=== PATIENT | male | born 1960 | race Caucasian/White ===

== ENCOUNTER → 2017-08-31 17:06 | Outpatient (CLI) | payer OTHER ==
[~2017-08-31 17:06] MED LIST: ASPIR-TRIN325 MG; METOPROLOL ER-1 EAC1; MICARDIS HCT 41 EACH
== END | disposition home or self-care (01) ==
LOC: RAD 17:06
DX: M54.5 Low back pain (principal)

== ENCOUNTER → 2019-08-09 | Outpatient (CLI) | payer OTHER | END | disposition home or self-care (01) | LOC: MRI 09:12 | DX: M54.5 Low back pain (principal) | CPT/HCPCS: 72148 ==

== ENCOUNTER 2020-11-30 11:04 | Outpatient (CLI) | payer OTHER ==
[~2020-11-30 11:04] MED LIST changes: +CYCLOBENZAPRINE10 MG PO; +DICLOFENAC POTA50 MG PO; +LYRICA50 MG PO; +TEGRETOL200 MG PO
== END 2020-11-30 15:00 | disposition home or self-care (01) ==
LOC: LAB 11:04
PROVIDERS: ATTEND Physical Medicine & Rehabilitation
DX: E56.8 Deficiency of other vitamins (principal)

== ENCOUNTER 2020-12-07 09:48 | Outpatient (CLI) | payer OTHER | END 2020-12-07 09:52 | disposition home or self-care (01) | LOC: LAB 09:48 | PROVIDERS: ATTEND Physical Medicine & Rehabilitation | DX: R03.0 Elevated blood-pressure reading, without diagnosis of hypertension (principal); M54.5 Low back pain ==

== ENCOUNTER → 2021-01-23 | Outpatient (CLI) | payer OTHER | END | disposition home or self-care (01) | LOC: RAD 14:51 | PROVIDERS: ATTEND Neurological Surgery | DX: M48.062 Spinal stenosis, lumbar region with neurogenic claudication (principal) ==

== ENCOUNTER 2021-02-21 13:38 | Outpatient (CLI) | payer OTHER | END 2021-02-21 13:40 | disposition home or self-care (01) | LOC: NUCLEAR 13:38 | PROVIDERS: ATTEND Radiology Diagnostic Radiology | DX: M81.0 Age-related osteoporosis without current pathological fracture (principal) ==

== ENCOUNTER 2022-07-15 10:22 | Outpatient (CLI) | payer OTHER | END 2022-07-15 10:24 | disposition home or self-care (01) | LOC: RAD 10:22 | DX: M48.062 Spinal stenosis, lumbar region with neurogenic claudication (principal) ==

== ENCOUNTER 2023-01-15 11:25 | Outpatient (CLI) | payer OTHER | END 2023-01-15 11:28 | disposition home or self-care (01) | LOC: RAD 11:25 | PROVIDERS: ATTEND Neurological Surgery | DX: M54.2 Cervicalgia (principal) ==

== ENCOUNTER 2023-06-18 13:41 | Outpatient (CLI) | payer OTHER | END 2023-06-18 13:53 | disposition home or self-care (01) | LOC: RAD 13:41 | PROVIDERS: ATTEND Neurological Surgery | DX: M48.062 Spinal stenosis, lumbar region with neurogenic claudication (principal) ==

== ENCOUNTER 2023-08-10 14:15 | Outpatient (CLI) | payer OTHER ==
[~2023-08-10 14:15] MED LIST changes: +GABAPENTIN100 M2 PO; +VOLTAREN ARTHRI20 GM TOP
== END 2023-08-10 14:26 | disposition home or self-care (01) ==
LOC: MRI 14:15
PROVIDERS: ATTEND Physical Medicine & Rehabilitation
DX: M25.561 Pain in right knee (principal)
CPT/HCPCS: 73721

== ENCOUNTER 2023-11-23 12:14 | Outpatient (CLI) | payer OTHER | END 2023-11-23 12:25 | disposition home or self-care (01) | LOC: RAD 12:14 | DX: M48.062 Spinal stenosis, lumbar region with neurogenic claudication (principal) ==